=== PATIENT | female | born 1995 | race Caucasian/White ===

== ENCOUNTER → 2017-10-16 | Emergency (ER) | payer OTHER ==
[~2017-10-16] VITALS: Ht 165.1 cm; Wt 58.1 kg
[~2017-10-16] MED LIST: NORCO 5-325 TA1 EACH PO; PAXIL10 MG PO; ZOLOFT25 MG PO
== END ==
LOC: ED 05:20
DX: R10.2 Pelvic and perineal pain (principal); Z88.2 Allergy status to sulfonamides; Z88.1 Allergy status to other antibiotic agents; Z88.8 Allergy status to other drugs, medicaments and biological substances; Z79.899 Other long term (current) drug therapy
CPT/HCPCS: 81001; 84703; 99283

== ENCOUNTER 2017-12-09 08:05 | Day surgery (SDC) | payer OTHER ==
[~2017-12-09] VITALS: Ht 165.1 cm; Wt 64.9 kg
--- NOTE | 2017-12-09 11:14 | NUR ---
12/09/17 1114 Holly Paris 1109 PATIENT ARRIVES TO PACU AWAKE OFF/ON. NO COMPLAINTS. RESP EVEN AND UNLABORED. OXYGEN OFF, SATS 100% ON ROOM AIR.
--- NOTE | 2017-12-10 08:12 | OR ---
[facility] [address] [place], [place] [address] Signed DATE OF OPERATION: 12/09/2017 SURGEON: Zev Sabillon MD PREOPERATIVE DIAGNOSES: 1. Rectal bleeding. 2. Pruritus ani. 3. Constipation. 4. Generalized abdominal pain. POSTOPERATIVE DIAGNOSIS: Unremarkable colonoscopy. PROCEDURE: Colonoscopy without biopsy. ESTIMATED BLOOD LOSS: None. INDICATIONS: Сергей is a 22-year-old female, who is healthy and at her stated age. She has a 1-year-old daughter and lives with her boyfriend. 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 She complains of some bloody bowel movements and says she can have pain with bowel movements, but not always. She says she has itching around the anus and sometimes it is quite horrible. She had been to her primary care provider. On exam, really nothing in the way of external hemorrhoids. The hydrocortisone suppositories did really seem to help. She was therefore asked to see me as a general surgeon. Сергей suffers with some anxiety and panic attacks and so we decided to withhold her rectal exam on her initial office visit. We did go over the hemorrhoid booklet in detail including the hemorrhoids in the anal fissures and pruritus ani. She is best served with a fiber product such as Benefiber as well as a lotion to cover the perianal skin particularly Balneol lotion. Also I explained to Сергей we need to make sure nothing else is causing rectal bleeding, so we introduced the idea of a colonoscopy. I had given her a book on colonoscopy and we looked at that together along with the risks including, but not limited to gas bloating, crampy abdominal pain, bleeding, perforation, requiring surgery, and missed diagnosis. We also discussed the need for IV conscious sedation. She had expressed understanding and wished to proceed. PROCEDURE NOTE: Сергей was taken into our endoscopy suite and placed in the left lateral decubitus Electronically Signed By: ZEV SABILLON MD 12/10/17 0812 PATIENT NAME: СЕРГЕЙ RIZZO OPERATIVE REPORT DATE OF : [birth year] REPORT #: [id number] PHYSICIAN: ZEV SABILLON MD PCP: LLOYD HELMS MD REPORT IS CONFIDENTIAL AND NOT TO BE RELEASED WITHOUT AUTHORIZATION [facility] [address] [place], [place] [address] Signed position. She said she was nauseated, so we gave her 8 mg of Zofran. After this, she required 12 mg of Versed and 200 mcg fentanyl to cover her during the case. Even then she was moving about a bit. We had to give her 2 of Versed just on the way out with the camera. Being young, her bowel prep was quite excellent. Our scope traveled quite readily right up to the cecum. We could not get the scope into the terminal ileum itself. However, we saw no evidence of any inflammation or other pathology throughout the entire colon. Once in the rectum, we had just enough room to retroflex the scope and there was no evidence of any internal hemorrhoids with the scope. After this, the scope was then removed and we looked carefully with her light around the anus. We pulled back on the anal skin and really could not see any fissure particularly in the anterior posterior midline. She has excellent sphincter tone. After this, we had terminated the colonoscopy. RECOMMENDATIONS: Сергей will return to my office in a week or so for followup and we will talk to her some more about hemorrhoids and pruritus ani and make sure that she has a [employer] brochure at home along with our pruritus ani handout. If she wants a formal anal exam in the office, we were happy to help her in that regard as well. Zve Sabillon MD ALB/MODL /[id number] cc: MD Kim Rasheed WHNP Andrew L Bower, MD Copies: LLOYD HELMS MD, KATIE C WHNP Electronically Signed By: ZEV SABILLON MD 12/10/17811 PATIENT NAME: СЕРГЕЙ RIZZO OPERATIVE REPORT DATE OF : [birth year] REPORT #: [id number] PHYSICIAN: ZEV SABILLON MD PCP: LLOYD HELMS MD REPORT IS CONFIDENTIAL AND NOT TO BE RELEASED WITHOUT AUTHORIZATION [facility] [address] [place] [address] Signed ZEV SABILLON MD ~ Electronically Signed By: ZEV SABILLON MD 12/10/17811 PATIENT NAME: СЕРГЕЙ RIZZO OPERATIVE REPORT DATE OF : [birth year] REPORT #: [id number] PHYSICIAN: ZEV SABILLON MD PCP: LLOYD HELMS MD REPORT IS CONFIDENTIAL AND NOT TO BE RELEASED WITHOUT AUTHORIZATION
== END 2017-12-09 11:40 | disposition home or self-care (01) ==
LOC: DS 08:05 → OPS 08:05 → DS 10:00 → OPS 10:00
PROVIDERS: Colon & Rectal Surgery
PROC: 0DJD8ZZ Inspection of Lower Intestinal Tract, Via Natural or Artificial Opening Endoscopic (ICD-10-PCS; principal; 2017-12-09 10:00)
DX: K62.5 Hemorrhage of anus and rectum (principal); K59.00 Constipation, unspecified; L29.0 Pruritus ani; Z79.899 Other long term (current) drug therapy; F32.9 Major depressive disorder, single episode, unspecified; F41.9 Anxiety disorder, unspecified; F41.0 Panic disorder [episodic paroxysmal anxiety]; Z88.1 Allergy status to other antibiotic agents
CPT/HCPCS: 84703; 99153; G0500; J2250; J2405; J3010; J7120

== ENCOUNTER 2019-05-22 13:55 | Emergency (ER) | payer OTHER ==
[~2019-05-22] VITALS: Ht 165.1 cm; Wt 64.9 kg
[2019-05-22] MEDS ORDERED: VENLAFAXINE HCL75 M2 PO (14:29)
[2019-05-22] MEDS ORDERED: IBUPROFEN600 MG PO (14:30)
[2019-05-22] MEDS ORDERED: IRON325 M1 PO (14:30)
[2019-05-22] MEDS ORDERED: NORETHINDRONE0.35 MG PO (14:30)
[2019-05-22] MEDS ORDERED: CIPRO500 MG PO (16:30)
== END 2019-05-22 16:43 | disposition home or self-care (01) ==
LOC: ED 13:55
DX: R10.32 Left lower quadrant pain (principal); Z88.1 Allergy status to other antibiotic agents; Z88.2 Allergy status to sulfonamides
CPT/HCPCS: 74176; 80053; 81001; 83690; 84703; 85025; 87491; 87591; 96374; 99284-25; J2405

== ENCOUNTER 2019-07-18 20:15 | Emergency (ER) | payer OTHER ==
[~2019-07-18] VITALS: Ht 165.1 cm; Wt 63.5 kg
[~2019-07-18 20:15] MED LIST changes: +CIPRO500 MG PO; +IBUPROFEN600 MG PO; +IRON325 M1 PO; +NORETHINDRONE0.35 MG PO; +VENLAFAXINE HCL75 M2 PO
[2019-07-18] MEDS ORDERED: VITAMIN D21250 MCG PO (22:43)
== END 2019-07-18 23:47 | disposition home or self-care (01) ==
LOC: ED 20:15
DX: O20.0 Threatened abortion (principal); Z3A.01 Less than 8 weeks gestation of pregnancy; Z88.2 Allergy status to sulfonamides; Z88.8 Allergy status to other drugs, medicaments and biological substances; Z79.899 Other long term (current) drug therapy
CPT/HCPCS: 76801; 76817; 80053; 81001; 84702; 85025; 86900; 86901; 99284-25

== ENCOUNTER 2020-03-17 05:55 | Inpatient (IN) | payer OTHER ==
[~2020-03-17] VITALS: Ht 165.1 cm; Wt 80.3 kg
[~2020-03-17 05:55] MED LIST changes: +VITAMIN D21250 MCG PO
--- NOTE | 2020-03-17 07:26 | PR ---
[facility] [address] [facility] [place] [address] Signed Progress Notes IP Datetime Report Generated by CPN: 03/17/2020 07:26 PROGRESS NOTES: [id number] Procedures: Artificial ROM Plan: Continue Present Management; Anticipate Vaginal Delivery VITAL SIGNS: [id number] Vital Signs: Reviewed; Within Normal Limits EXAM: [id number] Dilatation: 4.0 Effacement: 80 Station: -2 Contractions: rare MEMBRANES: [id number] Membranes Status: Ruptured Comments: Doing well, wo uld like Epidural later. FETUS A: [id number] FHR Baseline: 150 Variability: Moderate 6-25bpm Accelerations: 15X15 Presentation: Vertex FETUS B: [id number] Signing Physician: Diego Kasper MD Copies: ~ *Electronically Signed* 03/17/20 0726 DIEGO KASPER MD PATIENT NAME: СЕРГЕЙ RIZZO PROGRESS NOTE DATE OF : [birth year] PHYSICIAN: DIEGO KASPER MD RPT #: [id number] REPORT IS CONFIDENTIAL AND NOT TO BE RELEASED WITHOUT AUTHORIZATION
--- NOTE | 2020-03-17 10:58 | PR ---
[facility] [address] [facility] [place] [facility] [place], [place] [address] Signed Progress Notes IP Datetime Report Generated by CPN: 03/17/2020 10:57 PROGRESS NOTES: [id number] Impression: Normal Progression of Labor Procedures: Artificial ROM Plan: Continue Present Management; Anticipate Vaginal Delivery VITAL SIGNS: [id number] Vital Signs: Reviewed; Within Normal Limits EXAM: [id number] Dilatation: 5.0 Effacement: 85 Station: -3 Contractions: rare MEMBRANES: [id number] Membranes Status: Ruptured Comments: Getting uncomfortable, would like Epidural. Anesthesia called. FETUS A: [id number] FHR Baseline: 150 Variability: Moderate 6-25bpm Accelerations: 15X15 Presentation: Vertex FETUS B: [id number] Signing Physician: Diego Kasper MD Copies: ~ *Electronically Signed* 03/17/20 1057 DIEGO KASPER MD PATIENT NAME: СЕРГЕЙ RIZZO PROGRESS NOTE DATE OF : [birth year] PHYSICIAN: DIEGO KASPER MD RPT #: [id number] REPORT IS CONFIDENTIAL AND NOT TO BE RELEASED WITHOUT AUTHORIZATION
--- NOTE | 2020-03-17 14:41 | PR ---
[facility] [address] [facility] [place], [place] [address] Signed Progress Notes IP Datetime Report Generated by CPN: 03/17/2020 14:41 PROGRESS NOTES: [id number] Impression: Normal Progression of Labor Procedures: Artificial ROM Plan: Continue Present Management; Anticipate Vaginal Delivery VITAL SIGNS: [id number] Vital Signs: Reviewed; Within Normal Limits EXAM: [id number] Dilatation: 10.0 Effacement: 100 Station: 0 Contractions: rare MEMBRANES: [id number] Membranes Status: Ruptured Comments: Doing well with Epidural, will have patient start pushing FETUS A: [id number] FHR Baseline: 150 Variability: Moderate 6-25bpm Accelerations: 15X15 Presentation: Vertex FETUS B: [id number] Signing Physician: Diego Kasper MD Copies: ~ *Electronically Signed* 03/17/20 1441 DIEGO KASPER MD PATIENT NAME: СЕРГЕЙ RIZZO PROGRESS NOTE DATE OF : [birth year] PHYSICIAN: DIEGO KASPER MD RPT #: [id number] REPORT IS CONFIDENTIAL AND NOT TO BE RELEASED WITHOUT AUTHORIZATION
--- NOTE | 2020-03-17 16:07 | PR ---
[facility] [address] [facility] [place], [place] [address] Signed Progress Notes IP Datetime Report Generated by CPN: 03/17/2020 16:07 PROGRESS NOTES: [id number] Impression: Normal Progression of Labor Procedures: Artificial ROM Plan: Continue Present Management VITAL SIGNS: [id number] Vital Signs: Reviewed; Within Normal Limits EXAM: [id number] Dilatation: 10.0 Effacement: 100 Station: 0 Contractions: rare MEMBRANES: [id number] Membranes Status: Ruptured Comments: Pushing, but has "hot spot" RLQ, now bnot wanting to push. Encouraged to continue pushing. FETUS A: [id number] FHR Baseline: 150 Variability: Moderate 6-25bpm Accelerations: 15X15 Presentation: Vertex FETUS B: [id number] Signing Physician: Diego Kasper MD Copies: ~ *Electronically Signed* 03/17/20 1600 DIEGO KASPER MD PATIENT NAME: СЕРГЕЙ RIZZO PROGRESS NOTE DATE OF : [birth year] PHYSICIAN: DIEGO KASPER MD RPT #: [id number] REPORT IS CONFIDENTIAL AND NOT TO BE RELEASED WITHOUT AUTHORIZATION
--- NOTE | 2020-03-17 16:53 | PR ---
[facility] [address] [facility] [place], [place] [address] Signed Progress Notes IP Datetime Report Generated by CPN: 03/17/2020 16:52 PROGRESS NOTES: [id number] Impression: Arrest of Dilatation/Descent Procedures: Artificial ROM Plan: Deliver- Section Informed Consent Obtain: Section Delivery VITAL SIGNS: [id number] Vital Signs: Reviewed; Within Normal Limits EXAM: L8607473 Dilatation: 10.0 Effacement: 100 Station: 0 Contractions: rare MEMBRANES: [id number] Membranes Status: Ruptured Comments: Having more RLQ pelvic pain, trying to push through it, tried several different positions, seems to be pushing well, but no change in descent for almost 2 hours except increased caput. Discussed C/S; procedure, risks, scheduled repeat C/S next time. Questions answered. Patient ready for C/S. OR and Anesthesia called. FETUS A: [id number] FHR Baseline: 150 Variability: Moderate 6-25bpm Accelerations: 15X15 Presentation: Vertex FETUS B: [id number] Signing Physician: Diego Kasper MD Copies: ~ *Electronically Signed* 03/17/20 7302 DIEGO KASPER MD PATIENT NAME: СЕРГЕЙ RIZZO PROGRESS NOTE DATE OF : [birth year] PHYSICIAN: DIEGO KASPER MD RPT #: [id number] REPORT IS CONFIDENTIAL AND NOT TO BE RELEASED WITHOUT AUTHORIZATION
--- NOTE | 2020-03-17 18:33 | NUR ---
03/17/20 183 Kimo Sanchez PT ARRIVED TO [facility] [address] WITH IV IN PLACE IN RIGHT WRIST. REPORT RECIEVED. SEE [facility] CHARTING FOR FULL VITAL SIGNS. SADE RN AT BEDSIDE ASSISTING WITH BREAST FEEDING. BABY TO CHEST AT 1825
--- NOTE | 2020-03-18 13:00 | PR ---
[facility] [address] [facility] [place] [address] Signed PP Progress Notes Datetime Report Generated by CPN: 03/18/2020 13:00 SUBJECTIVE: [id number] Pain: Within Normal Limits Nausea/Vomiting: Denies Vital Signs: [id number] Vital Signs: Reviewed; Within Normal Limits Notable Details: PP Hgb/Hct = 8.7/24.9 Abdomen/Uterus: Normal Lochia: Normal Extremities: Normal Incision: Normal IMPRESSION/PLAN/PROCEDURES: [id number] Impression: Normal Progression Plan: Continue Present Management Procedures: None Progress Notes: Doing well, without complaint, tolerating food well, voiding without difficulty. Discussed anemia; will send home with oral Iron. Signing Physician: Diego Kasper MD Copies: ~ *Electronically Signed* 03/18/20 1300 DIEGO KASPER MD PATIENT NAME: СЕРГЕЙ RIZZO PROGRESS NOTE DATE OF : [birth year] PHYSICIAN: DIEGO KASPER MD RPT #: [id number] REPORT IS CONFIDENTIAL AND NOT TO BE RELEASED WITHOUT AUTHORIZATION
--- NOTE | 2020-03-19 09:31 | PR ---
[facility] [address] [facility] [place] [address] Signed PP Progress Notes Datetime Report Generated by CPN: 03/19/2020 09:31 SUBJECTIVE: [id number] Pain: Within Normal Limits Nausea/Vomiting: Denies Vital Signs: [id number] Vital Signs: Reviewed; Within Normal Limits Notable Details: PP Hgb/Hct = 8.7/24.9 EXAM: Met Abdomen/Uterus: Normal Lochia: Normal Extremities: Normal Incision: Normal IMPRESSION/PLAN/PROCEDURES: [id number] Impression: Normal Progression Plan: Discharge Procedures: None Progress Notes: Doing well, without complaint, ready to go home. Signing Physician: Diego Kasper MD Copies: ~ *Electronically Signed* 03/19/20 0931 DIEGO KASPER MD PATIENT NAME: СЕРГЕЙ RIZZO PROGRESS NOTE DATE OF : 93 PHYSICIAN: DIEGO KASPER MD RPT #: [id number] REPORT IS CONFIDENTIAL AND NOT TO BE RELEASED WITHOUT AUTHORIZATION
--- NOTE | 2020-03-19 10:09 | OR ---
[facility] [address] [facility] [place], [place] [address] Signed DATE OF OPERATION: 03/17/2020 SURGEON: Taj Mascorro MD PREOPERATIVE DIAGNOSIS: Failure to descend. POSTOPERATIVE DIAGNOSIS: Failure to descend. PROCEDURE PERFORMED: Primary low transverse segment section, delivery of live male infant. INSTALLER MOLDING AND TRIM: Dr. Castro. ANESTHESIA: Epidural. ESTIMATED BLOOD LOSS: 700 mL. COMPLICATIONS: None. DRAINS: Russell to bladder. FINDINGS: Live male . Apgars 8 and 9. Weight 8 pounds 13 ounces. Normal uterus, normal tubes and ovaries bilateral. DESCRIPTION OF PROCEDURE: The patient was brought to the operating room, placed in supine position. After adequate epidural anesthesia was obtained, was prepped and draped in usual sterile fashion. The patient already had Russell catheter in the bladder. A Pfannenstiel skin incision was made with a scalpel and extended through the subcutaneous tissue with the Bovie. The fascia was nicked with scalpel and extended in transverse fashion using curved scissors. The underlying abdominal musculature was bluntly and sharply from the fascia above and below the incision. The abdominal musculature was bluntly and Electronically Signed By: TAJ MASCORRO MD 03/19/20 1009 PATIENT NAME: СЕРГЕЙ RIZZO OPERATIVE REPORT DATE OF : [birth year] REPORT #: [id number] PHYSICIAN: TAJ MASCORRO MD PCP: NO PRIMARY CARE PHYSICIAN REPORT IS CONFIDENTIAL AND NOT TO BE RELEASED WITHOUT AUTHORIZATION [facility] [address] [place], [place] [address] Signed sharply along the midline. The peritoneum was grasped with hemostats, nicked with scissors and extended in vertical fashion using scissors and finger dissection. The Mynor self-retaining retractor was inserted into the incision and tightened in place. The lower uterine segment was identified and noted to be thin, somewhat bulging. Lower uterine segment was carefully nicked with scalpel and extended in transverse fashion using finger dissection. Clear fluid came from the incision as well as portion of the cord. The infant's head was wedged tightly in the pelvis. The head was delivered from the incision and the cord removed from around the neck and then, the rest of the was easily delivered from the incision. The cord was doubly clamped and cut. The passed off table in good condition to awaiting nurse. The placenta was then manually removed and the uterine cavity was explored. An angle stitch of 0 Monocryl was placed at one end in the incision. A running locking stitch of 0 Monocryl starting at the other end used to close the incision. A second running stitch of 0 Monocryl was used to imbricate the first layer. There was some bleeding at the left angle. This was controlled by putting finger behind the broad ligament and carefully suturing around the vessels that were bleeding and running this in a running locking stitch back up to the angle. At this point, good hemostasis was noted. The entire pelvis was irrigated, suctioned, and examined. Any superficial bleeding spots cauterized with the Bovie. When good hemostasis was obtained, the Mynor retractor was removed and sheet of ACell placed over the lower uterine segment to help with healing. The anterior wall peritoneum was closed using running stitch of 2-0 Vicryl suture. The abdominal musculature was reapproximated using interrupted stitches of 0 Vicryl suture. The abdominal wall incision was then irrigated, suctioned, examined. Any bleeding spots cauterized with the Bovie. Powdered ACell sprinkled over the abdominal musculature and the fascia closed using 2 running stitch of 0 Vicryl suture meeting in the midline. The subcutaneous tissue was irrigated, suctioned, examined. Any bleeding spots cauterized with the Bovie. Subcutaneous tissue then closed using interrupted stitches of 3-0 Vicryl suture. The skin was reapproximated using skin clips. The patient tolerated the procedure well, went to recovery room in good condition. The sponge, needle, and instrument counts were correct at the end of the procedure. Taj Mascorro MD MJB/MODL /[id number] Electronically Signed By: TAJ MASCORRO MD 03/19/20 1009 PATIENT NAME: СЕРГЕЙ RIZZO OPERATIVE REPORT DATE OF : [birth year] REPORT #: [id number] PHYSICIAN: TAJ MASCORRO MD PCP: NO PRIMARY CARE PHYSICIAN REPORT IS CONFIDENTIAL AND NOT TO BE RELEASED WITHOUT AUTHORIZATION [address] [address] Signed Copies: ~ Electronically Signed By: TAJ MASCORRO MD 03/19/20 1009 PATIENT NAME: SOСЕРГЕЙ JOSSELYN OPERATIVE REPORT DATE OF : [birth year] REPORT #: [id number] PHYSICIAN: TAJ MASCORRO MD PCP: NO PRIMARY CARE PHYSICIAN REPORT IS CONFIDENTIAL AND NOT TO BE RELEASED WITHOUT AUTHORIZATION
== END 2020-03-19 13:40 | disposition home or self-care (01) | DRG 788 ==
LOC: FBC 05:55
PROVIDERS: ADMIT General Practice
PROC: 10907ZC Drainage of Amniotic Fluid, Therapeutic from Products of Conception, Via Natural or Artificial Opening (ICD-10-PCS; 2020-03-17)
PROC: 00HU33Z Insertion of Infusion Device into Spinal Canal, Percutaneous Approach (ICD-10-PCS; 2020-03-17)
PROC: 3E0R3BZ Introduction of Anesthetic Agent into Spinal Canal, Percutaneous Approach (ICD-10-PCS; 2020-03-17)
PROC: 10D00Z1 Extraction of Products of Conception, Low, Open Approach (ICD-10-PCS; principal; 2020-03-17 17:14)
DX: O32.4XX0 Maternal care for high head at term, not applicable or unspecified (principal); Z3A.39 39 weeks gestation of pregnancy; Z37.0 Single live birth; O63.1 Prolonged second stage (of labor); O69.81X0 Labor and delivery complicated by cord around neck, without compression, not applicable or unspecified; O99.02 Anemia complicating childbirth; D50.8 Other iron deficiency anemias; O99.344 Other mental disorders complicating childbirth; F41.1 Generalized anxiety disorder; F32.9 Major depressive disorder, single episode, unspecified; O99.285 Endocrine, nutritional and metabolic diseases complicating the puerperium; E55.9 Vitamin D deficiency, unspecified; Z79.899 Other long term (current) drug therapy; Z88.2 Allergy status to sulfonamides; Z88.8 Allergy status to other drugs, medicaments and biological substances
CPT/HCPCS: 01961; 36415; 85027; A9270; J0690; J2001; J2274; J2405; J2550; J2590; J2795; J7121

== ENCOUNTER 2022-09-15 02:42 | Emergency (ER) | payer OTHER ==
[~2022-09-15] VITALS: Ht 165.1 cm; Wt 80.3 kg
[2022-09-15] MEDS ORDERED: DESVENLAFAXINE50 M3 PO (02:52)
== END 2022-09-15 04:45 | disposition home or self-care (01) ==
LOC: ED 02:42
DX: E86.0 Dehydration (principal); F10.129 Alcohol abuse with intoxication, unspecified; Y90.6 Blood alcohol level of 120-199 mg/100 ml; Z88.2 Allergy status to sulfonamides; Z88.1 Allergy status to other antibiotic agents; Z88.8 Allergy status to other drugs, medicaments and biological substances; Z79.899 Other long term (current) drug therapy
CPT/HCPCS: 36415; 80053; 81001; 83735; 84703; 85025; 96374; 96375; 99284-25; G0480; J2405; J7121

== ENCOUNTER 2023-07-01 08:05 | Day surgery (SDC) | payer OTHER ==
[2023-06-30 11:25] VITALS: BP 111/70
[~2023-07-01] VITALS: Ht 165.1 cm; Wt 76.0 kg
[~2023-07-01 08:05] MED LIST changes: +DESVENLAFAXINE50 M3 PO; +FISH OIL 1,0001 EAC5 PO; +HYDROXYZINE HCL25 MG PO
[2023-07-01 08:44] VITALS: BP 112/79
--- NOTE | 2023-07-01 10:29 | NUR ---
07/01/23 1029 Sheets,Mariam 1012 PT ARRIVED TO PACU WITH ORAL AIRWAY IN PLACE AND 6L VIA MASK. RESP EVEN AND UNLABORED, WITH CHIN LIFT USED OFF AND ON TO MAINTAIN AIRWAY. 1015 PT HEAD TUREND TO RIGHT SIDE AND CHIN LIFT NO LONGER NEEDED. SMALL MASS NOTED BELOW LEFT EAR, MD AWARE AND WILL FOLLOW UP WITH PT AT FOLLOW UP. 1024 PT WAKES AND ORAL AIRWAY REMOVED. PT DENIES PAIN AND NAUSEA. 1027 PT TAKES SMALL SIP OF WATER WITH NO CONCERNS. HOB INCREASED AND PT COUGHING OFF AND ON.
[2023-07-01 10:43] VITALS: BP 105/58
--- NOTE | 2023-07-01 11:28 | OR ---
[facility] [address] [facility] [place], [place] [address] Signed DATE OF OPERATION: 07/01/2023 SURGEON: Jovan Jara MD PREOPERATIVE DIAGNOSIS: Right nasal septal lesion. POSTOPERATIVE DIAGNOSIS: Right nasal septal lesion. PROCEDURE: Biopsy of right nasal septal lesion. ANESTHESIA: General, LMA; SLEEP TECHNICIAN, Esther PREOP HISTORY: Сергей is a 27-year-old young lady with a lesion on the right nasal septum. This is a small lesion, which has not resolved with office silver nitrate cautery. She is taken to the operating for the above-mentioned procedures. OPERATIVE PROCEDURE AND FINDINGS: After informed consent, the patient was taken to the operating room and placed in supine position, where general LMA anesthesia was induced. The patient and procedure were verified. Nasal cavity was inspected with headlight speculum. Left side was clear. On the right side, the septum about 2 cm from the nasal introitus. About a centimeter above the floor, there was a 1 or 2 mm dimple in the septal mucosa. This did not connect through the septum, nothing on the left side. The edges of this dimple were biopsied with a small cup forceps and tissue sent to Pathology. Minor bleeding controlled with suction cautery and hemostasis was verified. Neosporin was applied. The patient was awakened, extubated, and transported to the recovery room in good condition. COMPLICATIONS: No complications. ESTIMATED BLOOD LOSS: Minimal. SPECIMEN: Electronically Signed By: JOVAN JARA MD 07/01/23 1128 PATIENT NAME: СЕРГЕЙ RIZZO OPERATIVE REPORT DATE OF : 93 REPORT #: [id number] PHYSICIAN: JOVAN JARA MD PCP: INDIA VILLALPANDO MD REPORT IS CONFIDENTIAL AND NOT TO BE RELEASED WITHOUT AUTHORIZATION [address] [place], [place] [address] Signed To pathology. DRAINS: No drains. PACKING: No packing. Jovan Jara MD GC/MODL /[id number] Copies: ~ Electronically Signed By: JOVAN JARA MD 07/01/23 1128 PATIENT NAME: СЕРГЕЙ RIZZO OPERATIVE REPORT DATE OF : [birth year] REPORT #: [id number] PHYSICIAN: JOVAN JARA MD PCP: INDIA VILLALPANDO MD REPORT IS CONFIDENTIAL AND NOT TO BE RELEASED WITHOUT AUTHORIZATION
--- NOTE | 2023-07-01 11:29 | NUR ---
SARTHAK 1035-PATIENT BACK TO ROOM FROM PACU ON . RECEIVED REPORT FROM JEFE TAYLOR. PATIENT IS AWAKE. RESP EVEN AND UNALBORED. DENIES PAIN AND NAUSEA. NO DRAINAGE FROM NOSE. PATIENT EATING PUDDING AND DRINKING WATER. NO OTHER NEEDS AT THIS TIME. CALL LIGHT WITHIN REACH.
[2023-07-01 11:44] VITALS: BP 106/65
--- NOTE | 2023-07-01 11:59 | NUR ---
1144-PATIENT IS LAYING IN BED WITH EYES CLOSED. OPENS EYES AND ANSWERES QUESTIONS. TRUDI PAIN AND NAUSEA. NO DRAIAGE NOTED. PATIENT IS READY TO GO HOME. PATIENT SITTING AT SIDE OF BED, DENIES NAUSEA OR DIZZINESS. PATIENT WILL GET DRESSD. CALL LIGHT WITHIN REACH.
--- NOTE | 2023-07-01 12:01 | NUR ---
1152-PATIENT AMBULATES TO BATHROOM GAIT STEADY AND TOLERATED WELL. PATIENT VOIDED. 1156-WENT OVER DISCHARGE INSTRUCTIONS WITH PATIENT. ALL QUESTIONS ANSWERED. PATIENT AMBULATES TO WHEELCHAIR AND RIDE PROVIDED TO FRONT OF HOSPITAL WHERE HER RIDE WAS WAITING WITH THE CAR.
--- NOTE | 2023-07-02 15:45 | PATH ---
[facility] [address] [facility] [place], [place] [address] Signed SPECIMEN(S): A RIGHT SEPTAL SPECIMEN SOURCE: A. RIGHT SEPTAL CLINICAL HISTORY: Right nasal lesion FINAL PATHOLOGIC DIAGNOSIS: Right septal: - Polypoid fragment of bland mucosal covered polyp with chronic stromal inflammation. - Squamous metaplastic epithelium with reactive features. JVR:cml MICROSCOPIC EXAMINATION: Histologic sections of all submitted blocks are examined by light microscopy. These findings, together with the gross examination, support the pathologic diagnosis. GROSS DESCRIPTION: The specimen, labeled and designated "Kimberly, right septal," is received in formalin and consists of two pink-arellano soft tissue fragments, ranging from 0.2-0.4 cm. Entirely submitted in (A1). VB (under the direct supervision of a pathologist) The Gross Description was prepared using a voice recognition system. The report was reviewed for accuracy; however, sound-alike word errors, addition and/or deletions may occur. If there is any question about this report, please contact Client Services. ADDITIONAL NOTES: Immunohistochemical and/or in situ hybridization studies if performed in this case included appropriate positive controls that reacted as expected. This test was developed and its performance characteristics determined by [employer]. It has not been cleared or approved by the U.S. Food and Drug Administration. The FDA has determined that such clearance or approval is not necessary. This test is used for clinical purposes. It should not be regarded as investigational or for research. [facility] [facility] [employer] is certified under the Clinical Laboratory Improvement Amendments of 1988 (CLIA) as qualified to perform high complexity clinical PATIENT NAME: СЕРГЕЙ RIZZO PATHOLOGY DATE OF : [birth year] REPORT #: [id number] PHYSICIAN: MEI CASANOVA PCP: [place] VILLALPANDO MD REPORT IS CONFIDENTIAL AND NOT TO BE RELEASED WITHOUT AUTHORIZATION [address] [place], [place] [address] Signed laboratory testing. PERFORMING LABORATORY: Technical component was performed by [facility], [address] [place] [address] (CLIA# [id number]). Professional interpretation was performed by [facility], [address] [place] [id number] (CLIA#: [id number]). Diagnostician: Jorge L Chanel MD Pathologist Electronically Signed 07/02/2023 Copies: ~ PATIENT NAME: СЕРГЕЙ RIZZO PATHOLOGY DATE OF : [birth year] REPORT #: [id number] PHYSICIAN: MEI CASANOVA PCP: [place] VILLALPANDO MD REPORT IS CONFIDENTIAL AND NOT TO BE RELEASED WITHOUT AUTHORIZATION
== END 2023-07-01 11:56 | disposition home or self-care (01) ==
LOC: DS 08:05 → OPS 08:05 → DS 09:30 → OPS 10:00
PROVIDERS: ATTEND Otolaryngology
PROC: 09BM8ZX Excision of Nasal Septum, Via Natural or Artificial Opening Endoscopic, Diagnostic (ICD-10-PCS; principal; 2023-07-01 10:00)
DX: J33.0 Polyp of nasal cavity (principal); J34.89 Other specified disorders of nose and nasal sinuses
CPT/HCPCS: A9270; J0131; J2001; J2250; J2704; J7121

== ENCOUNTER 2024-01-25 17:16 | Emergency (ER) | payer OTHER ==
[~2024-01-25] VITALS: Ht 165.1 cm; Wt 75.3 kg
[2024-01-25 19:44] LABS: BILIRUBIN, URINE NEGATIVE (negative); BLOOD/HGB, URINE LARGE (Negative); KETONE, URINE NEGATIVE (Negative); LEUK ESTERASE, URINE NEGATIVE (negative); NITRITE, URINE NEGATIVE (negative)
[2024-01-25 20:20] LABS: BACTERIA, URINE RARE /hpf (negative); CASTS, URINE NONE SEEN \\lpf; CRYSTALS, URINE CALCIUM OXALATE 1+ (0-1+); EPITHELIAL CELLS, URINE SQUAMOUS 1+ /lpf (0-1+)
[2024-01-25 20:21] LABS: COLLECTION TYPE, URINE CLEAN CATCH; REFLEX CULTURE, URINE No (No)
[2024-01-25 20:40] VITALS: BP 126/92
== END 2024-01-25 20:40 | disposition left against medical advice (07) ==
LOC: ED 17:16
PROVIDERS: Internal Medicine
DX: R10.9 Unspecified abdominal pain (principal); Z53.21 Procedure and treatment not carried out due to patient leaving prior to being seen by health care provider
CPT/HCPCS: 81001

== ENCOUNTER 2024-08-15 07:51 | Emergency (ER) | payer OTHER ==
[~2024-08-15] VITALS: Ht 165.1 cm; Wt 66.2 kg
[2024-08-15] MEDS ORDERED: LIDOCAINE HCL 4% 1 EACH PATCH TD ONE (08:15)
[2024-08-15] MEDS ORDERED: ACETAMINOPHEN 500 MG TAB PO ONE (08:15)
[2024-08-15] MEDS ORDERED: KETOROLAC TROMETHAMINE 60 MG/2 ML VIAL IM ONE (08:15)
[2024-08-15] MEDS ORDERED: CYCLOBENZAPRINE10 MG PO (09:33)
[2024-08-15 09:37] VITALS: BP 116/81
== END 2024-08-15 09:37 | disposition home or self-care (01) ==
LOC: ED 07:51
DX: M54.50 Low back pain, unspecified (principal); Z79.899 Other long term (current) drug therapy
CPT/HCPCS: 96372; 99283; A9270; J1885

== ENCOUNTER 2024-11-09 12:44 | Emergency (ER) | payer OTHER ==
[~2024-11-09] VITALS: Ht 165.1 cm; Wt 65.4 kg
[~2024-11-09 12:44] MED LIST changes: +CYCLOBENZAPRINE10 MG PO
[2024-11-09] MEDS ORDERED: ENILLORING VAG1 EACH VAGINAL (12:56)
[2024-11-09] MEDS ORDERED: CYCLOBENZAPRINE10 MG PO (13:06)
[2024-11-09] MEDS ORDERED: IBUPROFEN 600 MG TAB PO ONE (13:15)
[2024-11-09] MEDS ORDERED: ACETAMINOPHEN 325 MG TAB PO ONE (13:15)
[2024-11-09 13:16] VITALS: BP 140/91
== END 2024-11-09 13:16 | disposition home or self-care (01) ==
LOC: ED 12:44
DX: M54.2 Cervicalgia (principal); Z79.899 Other long term (current) drug therapy
CPT/HCPCS: 99283

== ENCOUNTER 2025-05-19 12:00 | Emergency (ER) | payer OTHER ==
[~2025-05-19] VITALS: Ht 165.1 cm; Wt 69.8 kg
[~2025-05-19 12:00] MED LIST changes: +ENILLORING VAG1 EACH VAGINAL
[2025-05-19] MEDS ORDERED: KETOROLAC TROMETHAMINE 30 MG/ML VIAL IV ONE (12:30)
[2025-05-19] MEDS ORDERED: SODIUM CHLORIDE 0.9% 1,000 ML IV PRN (12:45)
[2025-05-19 13:01] LABS: BASOPHILS 0.4 % (0.1-1.2); EOSINOPHILS 1.0 % (0.7-5.8); LYMPHOCYTES 24.1 % (19.3-51.7); MCH 28.0 PG (25.6-32.2); MCHC 32.9 g/dL (32.2-35.5); MCV 85.3 fL (79.4-94.8); MONOCYTES 5.6 % (4.7-12.5); NEUTROPHILS 68.5 % (34.0-71.1); RBC 4.14 M/uL (3.93-5.22)
[2025-05-19] MEDS ORDERED: PROCHLORPERAZINE EDISYLATE 10 MG/2 ML VIAL IV ONE (13:45)
[2025-05-19 13:53] LABS: ALT (SGPT) 23.0 U/L (14-59); AST (SGOT) 12.0 U/L (15-37); GLOMERULAR FILTRATION RATE,EST 119.0 mL/min (>60); PROTEIN, TOTAL 7.3 g/dL (6.4-8.2); UREA NITROGEN 13.0 mg/dL (7-18)
[2025-05-19 15:48] VITALS: BP 113/82
== END 2025-05-19 15:45 | disposition home or self-care (01) ==
LOC: ED 12:00
PROVIDERS: Emergency Medicine
DX: R51.9 Headache, unspecified (principal); Z79.899 Other long term (current) drug therapy
CPT/HCPCS: 36415; 80053; 84703; 85025; 96374; 96375; 99283-25; J0780; J1200; J1885; J2405; J7030